=== PATIENT | male | born 1965 | race Two or more races ===

== ENCOUNTER 2022-09-18 13:03 | Emergency (ER) | payer OTHER ==
[~2022-09-18] VITALS: Ht 190.5 cm; Wt 108.9 kg
[2022-09-18] MEDS ORDERED: SIMVASTATIN40 MG PO (13:39)
[2022-09-18] MEDS ORDERED: METFORMIN HCL1000 M3 PO (13:39)
[2022-09-18] MEDS ORDERED: RAMIPRIL10 MG PO (13:39)
[2022-09-18] MEDS ORDERED: GLIMEPIRIDE4 M1 PO (13:39)
[2022-09-18] MEDS ORDERED: INSULIN GL100 UNIT/3 (13:39)
== END 2022-09-18 17:29 ==
LOC: ER 13:03
DX: M62.830 Muscle spasm of back (principal); M54.50 Low back pain, unspecified; E11.65 Type 2 diabetes mellitus with hyperglycemia; Z79.84 Long term (current) use of oral hypoglycemic drugs; Z79.4 Long term (current) use of insulin